=== PATIENT | male | born 1965 | race Caucasian/White ===

== ENCOUNTER 2017-02-03 18:03 | Emergency (ER) | payer MEDICAID, OTHER ==
[~2017-02-03] VITALS: Ht 175.3 cm; Wt 90.7 kg
[~2017-02-03 18:03] MED LIST: HYDR50TA3 PO; LOSA25TA13 PO
--- NOTE | 2017-02-03 18:56 | NUR ---
PT HAD LEFT ANKLE JOSEFINA WRAPPED, THEN CRUTCH TRAINING GIVEN,CRUTCHES DISPENSED, ACI/RX X1 AND WORK NOTE GIVE. PT DEMONSTRATED PROPER CRUTCH USE. PT AMBULATED W/O DIFF/TOOK ALL BELONGINGS.
[2017-02-03 18:58] VITALS: BP 149/71
== END 2017-02-03 19:00 | disposition home or self-care (01) ==
LOC: ER 18:03
DX: S93.402A Sprain of unspecified ligament of left ankle, initial encounter (principal); I10 Essential (primary) hypertension; X58.XXXA Exposure to other specified factors, initial encounter; Y93.89 Activity, other specified; Y99.8 Other external cause status; Y92.89 Other specified places as the place of occurrence of the external cause
CPT/HCPCS: 73600; A4663

== ENCOUNTER 2019-12-24 15:45 | Emergency (ER) | payer OTHER ==
[~2019-12-24] VITALS: Ht 177.8 cm; Wt 90.7 kg
--- NOTE | 2019-12-24 16:17 | NUR ---
celestina castillo at bedside for mse.
[2019-12-24] MEDS ORDERED: KETOROLAC TROMETHAMINE 15 MG INJ ONE (16:27)
[2019-12-24] MEDS ORDERED: KETOROLAC TROMETHAMINE 15 MG INJ IM ONE (16:30)
[2019-12-24 16:34] LABS: *BILIRUBIN,URIN NEGATIVE (NEGATIVE); *CLARITY,URINE CLEAR (CLEAR); *COLOR,URINE YELLOW (YELLOW); *KETONES,URINE NEGATIVE (NEGATIVE); *UROBILINOGEN,URINE 0.2 E.U./dl (NORMAL); LEUKOCYTE ESTERASE ,URINE NEGATIVE (NEGATIVE); NITRITE, URINE NEGATIVE (NEGATIVE); PH,URINE 5.5 (5.0-8.0); UGLUCOSE NEGATIVE (NEGATIVE)
[2019-12-24 16:37] LABS: *BLOOD, URINE NEGATIVE (NEGATIVE)
[2019-12-24 16:58] LABS: BASOPHILS % (AUTO) 0.4 % (0.0-2.0); EOSINOPHILS # (AUTO) 0.1 K/uL (0.0-0.7); EOSINOPHILS % (AUTO) 2.4 % (0.0-7.0); HEMATOCRIT 45.6 % (36.7-47.1); HEMOGLOBIN 15.4 g/dL (12.5-16.3); LYMPHOCYTES # (AUTO) 1.5 K/uL (20.0-40.0); LYMPHOCYTES % (AUTO) 24.9 % (20.5-51.5); MEAN CORPUSCULAR HEMOGLOBIN 31.2 uug (23.8-33.4); MEAN CORPUSCULAR HGB CONC 34 g/dL (32.5-36.3); MEAN CORPUSCULAR VOLUME 92.4 fL (73.0-96.2); MONOCYTES # (AUTO) 0.6 K/uL (2.0-10.0); MONOCYTES % (AUTO) 9.6 % (0.0-11.0); NEUTROPHILS # (AUTO) 3.8 K/uL (1.8-8.9); NEUTROPHILS % (AUTO) 62.7 % (38.5-71.5); PLATELET COUNT (AUTO) 276 K/uL (152-348); RED BLOOD CELL COUNT(AUTO) 4.94 MIL/uL (4.06-5.63); WHITE BLOOD COUNT (AUTO) 6.1 K/uL (3.6-10.2)
[2019-12-24 17:09] LABS: CREATININE 0.8 mg/dL (0.6-1.3); POTASSIUM 4.3 mmol/L (3.5-5.1)
[2019-12-24 17:49] VITALS: BP 121/72
--- NOTE | 2019-12-24 17:49 | NUR ---
Patient discharged to home in stable conditon. Written and verbal after care instructions given. Patient verbalizes understanding of instructions. ALL BELONGINGS W/ PT. PT SELF-AMBULATED W/O DIFFICULTY.
== END 2019-12-24 17:50 | disposition home or self-care (01) ==
LOC: ER 15:53
DX: N21.0 Calculus in bladder (principal); N20.0 Calculus of kidney; I10 Essential (primary) hypertension; Z79.899 Other long term (current) drug therapy
CPT/HCPCS: 36415; 74176; 80048; 81001; 85025; 87086; 96372; 99284; J1885; A4663

== ENCOUNTER 2019-12-27 00:33 | Emergency (ER) | payer OTHER ==
[~2019-12-27] VITALS: Ht 177.8 cm; Wt 90.7 kg
--- NOTE | 2019-12-27 00:55 | NUR ---
Dr. Ridley at bedside for MSE.
[2019-12-27] MEDS ORDERED: CYCLOBENZAPRINE HCL 10 MG TABLET PO ONE (01:30)
[2019-12-27] MEDS ORDERED: KETOROLAC TROMETHAMINE 60 MG INJ IM ONE ×2 (01:30→01:34)
[2019-12-27] MEDS ORDERED: CYCLOBENZAPRINE HCL 10 MG TABLET ONE (01:34)
--- NOTE | 2019-12-27 02:30 | NUR ---
Patient discharged to home in stable conditon. Written and verbal after care instructions given. Patient verbalizes understanding of instructions. Pt ambulated out of ER with steady gait, no acute signs of distress, VSS, all belongings taken.
[2019-12-27 02:31] VITALS: BP 107/81
== END 2019-12-27 02:32 | disposition home or self-care (01) ==
LOC: ER 00:35
DX: M25.551 Pain in right hip (principal); K40.90 Unilateral inguinal hernia, without obstruction or gangrene, not specified as recurrent; I10 Essential (primary) hypertension; Z79.899 Other long term (current) drug therapy
CPT/HCPCS: 96372; 99283; J1885; A4663

== ENCOUNTER 2020-05-15 18:39 | Emergency (ER) | payer OTHER ==
[~2020-05-15] VITALS: Ht 177.8 cm; Wt 95.3 kg
[~2020-05-15 18:39] MED LIST changes: +AMLO5TAB9 PO; -HYDR50TA3 PO; +LISI2.5T2 PO; -LOSA25TA13 PO
--- NOTE | 2020-05-15 18:58 | NUR ---
Dr. Hickey at bedside for MSE.
[2020-05-15] MEDS ORDERED: DEXAMETHASONE SOD PHOSPHATE 4 MG INJ IM ONE (19:00)
[2020-05-15] MEDS ORDERED: DEXAMETHASONE SOD PHOSPHATE 10 MG INJ ONE (19:04)
--- NOTE | 2020-05-15 19:10 | NUR ---
Patient discharged to home in stable condition. Written and verbal after care instructions given. Patient verbalizes understanding of instructions. Stressed follow up or return to ER for worsening s/s. Patient ambulated out of ER with steady gait, no acute signs of distress, VSS, all belongings taken.
[2020-05-15 19:12] VITALS: BP 137/88
== END 2020-05-15 19:12 | disposition home or self-care (01) ==
LOC: ER 18:44
DX: R21 Rash and other nonspecific skin eruption (principal); I10 Essential (primary) hypertension; Z87.442 Personal history of urinary calculi; Z79.899 Other long term (current) drug therapy
CPT/HCPCS: 96372; 99283; J1100; A4663